=== PATIENT | female | born 1945 | race Caucasian/White ===

== ENCOUNTER 2022-09-18 07:55 | Outpatient (RCR) | payer MEDICARE, OTHER, SELFPAY | END 2022-10-07 16:00 | disposition home or self-care (01) | LOC: HO.WCC 07:55 | PROVIDERS: PCP Internal Medicine; Visit Provider Physician Assistant | DX: E11.621 Type 2 diabetes mellitus with foot ulcer (principal); L97.412 Non-pressure chronic ulcer of right heel and midfoot with fat layer exposed; E11.42 Type 2 diabetes mellitus with diabetic polyneuropathy; E11.51 Type 2 diabetes mellitus with diabetic peripheral angiopathy without gangrene; E11.610 Type 2 diabetes mellitus with diabetic neuropathic arthropathy; I10 Essential (primary) hypertension; I89.0 Lymphedema, not elsewhere classified; L84 Corns and callosities; Z79.84 Long term (current) use of oral hypoglycemic drugs; Z92.3 Personal history of irradiation | CPT/HCPCS: 11042; 99212 ==

== ENCOUNTER 2023-01-09 12:35 | Outpatient (RCR) | payer MEDICARE, OTHER, SELFPAY ==
--- NOTE | ~2023-01-09 | XR_ITS ---
EXAMINATION: XR FOOT, RIGHT CLINICAL INFORMATION: Nonhealing wound of midfoot; question osteomyelitis. COMPARISON: None available. TECHNIQUE: AP, lateral, and oblique views of the right foot. FINDINGS: Bony mineralization is normal. There is a pes planus configuration. There are second through fourth hammertoe configurations. No fracture, dislocation or right ankle joint effusion is seen. Boehler's angle is normal. There are small posterior and plantar calcaneal spurs. There are degenerative changes of the dorsal midfoot. No acute fracture or dislocation is seen. There are chronic periosteal calcifications noted of the second through fourth metatarsal bones, suggesting old, healed injuries. No focal bone erosion. There are diffuse atherosclerotic calcifications. XR/XR foot RT min 3V IMPRESSION: 1. No fracture, dislocation or right ankle joint effusion is seen. 2. There are small calcaneal spurs. 3. Chronic periosteal thickening of the second through fourth metatarsal bones suggests old, healed metatarsal stress fractures. 4. There are second through fourth hammertoe configurations. 5. There is a pes planus configuration. 6. No abnormal bone erosion or soft tissue gas is seen suggest acute osteomyelitis.
[2023-02-12 10:11] LABS: MANUAL DIFF FLAG NO
[2023-02-12 10:29] LABS: Estimated Average Glucose 117 mg/dL; Hemoglobin A1c % 5.7 % (<6.0)
[2023-02-12 10:33] LABS: Basophils Percent Auto 0.5 % (0-2); Eosinophils Absolute Auto 0.1 X10*3/uL (0.0-0.4); Eosinophils Percent Auto 1.1 % (0-4); Hematocrit 37.7 % (37.0-47.0); Hemoglobin 12.3 g/dl (12.0-16.0); Imm Gran Abs Auto 0.01 X10*3/uL (0.00-0.03); Imm Gran Pct Auto 0.2 % (0.0-0.4); Lymphocytes Absolute Auto 1.2 X10*3/uL (1.2-4.9); Lymphocytes Percent Auto 18.6 % (20-40); Mean Corpuscular HGB Conc 32.6 g/dl (31.0-35.0); Mean Corpuscular Hemoglobin 31.9 pg (27.0-33.0); Mean Corpuscular Volume 97.7 fL (80.0-98.0); Mean Platelet Volume 12.6 fL (9.4-12.3); Monocytes Absolute Auto 0.4 X10*3/uL (0.1-1.2); Monocytes Percent Auto 6.3 % (2-11); Neutrophils Absolute Auto 4.5 x10*3/uL (2.0-8.3); Neutrophils Percent Auto 73.3 % (45-73); Platelet Count 202 X10*3/uL (160-400); Red Blood Count 3.86 X10*6/uL (4.20-5.50); Red Cell Distribution Width 14.4 % (11.0-16.0); White Blood Count 6.2 X10*3/uL (4.8-10.8)
[2023-02-12 10:55] LABS: Anion Gap 12 (12-20); Blood Urea Nitrogen 22 mg/dL (9-16); C Reactive Protein 0.14 mg/dL (< or = 0.50); Calcium 9.6 mg/dL (8.4-10.2); Carbon Dioxide 27 mmol/L (22-29); Chloride 105 mmol/L (96-108); Estimated Glomerular Filt Rate 53; Glucose Random 96 mg/dL (60-115); Potassium 4.2 mmol/L (3.3-5.1); Sodium 140 mmol/L (135-145)
[2023-02-12 11:17] LABS: Erythrocyte Sedimentation Rate 31 MM/HR (0-20)
== END 2023-03-06 17:00 | disposition home or self-care (01) ==
LOC: HO.WCC 12:35
PROVIDERS: PCP Internal Medicine; Visit Provider Physician Assistant
DX: E11.621 Type 2 diabetes mellitus with foot ulcer (principal); E11.51 Type 2 diabetes mellitus with diabetic peripheral angiopathy without gangrene; L97.412 Non-pressure chronic ulcer of right heel and midfoot with fat layer exposed; E11.610 Type 2 diabetes mellitus with diabetic neuropathic arthropathy; E11.40 Type 2 diabetes mellitus with diabetic neuropathy, unspecified; I10 Essential (primary) hypertension; Z92.3 Personal history of irradiation
CPT/HCPCS: 11042; 36415; 73630; 80048; 83036; 84134; 85025; 85652; 86140; 99212

== ENCOUNTER 2024-11-17 10:03 | Outpatient (AMB) | payer MEDICARE, OTHER, SELFPAY ==
--- OUTSIDE RECORDS SUMMARY | 2024-11-17 11:49 | XMS_ITS | Clinical Summary ---
Author Organization [facility] Address [address] [place] [address] Care Team Providers Care Door Frame Builder Name Role Phone Nicolás Ramirez MD Primary Care Provider [phone] Allergies Active Allergy Reactions Criticality Noted Date Comments Amlodipine 05/15/2017 Penicillins 05/15/2017 Enalapril 05/15/2017 Medications Medication Sig Dispensed Refills Start Date End Date Status metFORMIN (GLUCOPHAGE) tablet 500 mg Take 500 mg by mouth 2 (two) times a day with meals. 0 Active metoprolol succinate (TOPROL-XL) 24 hr tablet 25 mg Take by mouth daily. 0 Active spironolactone (ALDACTONE) 100 MG tablet Take 100 mg by mouth daily. 0 Active hydrochlorothiazid e (HYDRODIURIL) tablet 25 mg Take 25 mg by mouth daily. 0 Active pravastatin (PRAVACHOL) tablet 40 mg Take 40 mg by mouth daily. 0 Active clindamycin (CLEOCIN) 300 MG capsule Take 2 capsules 1 hour prior to dental appointment 10 capsule 3 08/02/2017 Active Family History Medical History Relation Name Comments Diabetes Mother Hypertension Mother Relation Name Status Comments Mother Social History Tobacco Use Types Packs/Day Years Used Date Smoking Tobacco: Never Assessed Sex and Gender Information Value Date Recorded Sex Assigned at Not on file Gender Identity Not on file Sexual Orientation Not on file Plan of Treatment Health Maintenance Due Date Last Done Comments COVID-19 Vaccine (#1) 1945 Depression Screening 1956 Preventative Health Evaluation 01/11/1962 DTap / Tdap / Td (1 - Tdap) 01/11/1963 Shingrix-Zoster Vaccine (1 of 2) 01/11/1994 Fall Risk Assessment 01/11/2009 Osteoporosis Screening (DEXA Scan) 01/11/2009 Pneumococcal Vaccine (1 of 1 - PCV) 01/11/2009 RSV Adult > 60+ Yrs or Pregn ant (1 - 1-dose 75+ series) 01/11/2019 Influenza Vaccine (#1) 2024 Hepatitis B Vaccines Aged Out No long er eligible based on patient's age to complete this topic RSV Ped < 20 months Aged Out No longe r eligible based on patient's age to complete this topic Care Teams Door Frame Builder Relationship Specialty Start Date End Date Nicolás Ramirez MD [address] [place] [id number] PCP - General Internal Medicine 01/01/17
--- OUTSIDE RECORDS SUMMARY | 2024-11-17 11:49 | XMS_ITS | Patient Health Record ---
Author Organization [facility] Address [address] [place] [address] Care Team Providers Care Graphotype Operator Name Role Phone Nicolás Ramirez MD Primary Care Provider Argenis Fernandez Unavailable [phone] Arnaud Mace Unavailable [phone] Allergies Allergen (clinical drug ingredient) Drug/Non Drug Allergy documented on EMR Reaction Allergy Type Onset Date Status ibuprofen Advil told to avoid after surgery Drug Allergy Active Aleve told to avoid after surgery Drug Allergy Active sulfamethoxazole / trimethoprim Bactrim rash Drug Allergy Active Motrin told to avoid after surgery Drug Allergy Active amlodipine Norvasc right leg swelling Drug Allergy Active enalapril Vasotec angioedema Drug Allergy Active doxycycline Doxycycline Unknown Drug Allergy Act zaynab Penicillin rash Drug Allergy Active Results Component Value Reference Range Notes HEMOGLOBIN A1C (GLYCOHEMOGLO BIN) Reviewed date:07/30/2024 10:07:37 AM Interpretation: Performing Lab: Notes/Report: HEMOGLOBIN A1C % (HH) 6.3 Reason For Referral No Information Medications Medication SIG (Take, Route, Frequency, Duration) Notes Start Date End Date Status Metoprolol Succinate ER 25 MG 1 tablet Orally Once a day Active Pravastatin Sodium 40 MG 1 tablet Orally Once a day Active hydroCHLOROthiazide 25 MG as directed Orally Active Extra Depth Diabetic Shoes with 3 Pair Custom heat-molded multi-density innersoles for 1 year Dx: Not-Taking metFORMIN HCl ER 500 MG 1 tablet with ev ening meal Orally Once a day Not-Taking Doxycycline Monohydrate 100 MG 1 capsule Orally Once a day; Duration: 10 days 12/28/2022 Not-Taking Allopurinol 300 MG as directed Orally Active Compression Stockings 20-30mm Hg as directed Not-Taking Extra Depth Orthopedic Shoes (1 Pair) with Customized Heat Molded Multidensity Innersoles (3 Pair) as directed Dx: NIDDM/Polyneuropathy (E11.42), Hammertoe Foot Deformity (M20.41,M20.42), Preulcerative Skin Lesion(s) (L85.1 03/26/2024 Active Levaquin 500 MG 1 tablet Orally Once a day; Duration: 10 day(s) Not-Taking Spironolactone 100 MG 1 tablet with food Orally Once a day Active Night Splint AFO - L1930 as directed Not-Taking Custom Molded Shoes as directed Dx: Active Immunizations Vaccine Route Administration Date Status Comme nts Influenza Unknown 04/10/2017 Administered Influenza Unknown 12/13/2017 Administered Influenza Unknown 11/25/2018 Administered Influenza Unknown 07/10/2022 Administered Influenza Unknown 01/10/2023 Administered Influenza Unknown 12/13/2023 Administered Social History Tobacco Use: Social History Observation Description Date Details (start date - stop date) Never Smoker NA - NA Tobacco use other than smoking: Question Answer Notes Are you an other tobacco user? No Tobacco Control (Standard) Question Answer Notes Tobacco use: Nonsmoker Additional Findings: Tobacco non-user Current no nsmoker AUDIT-C (Standard) Question Answer Notes Did you have a drink containing alcohol in the p ast year? No Points 0 Interpretation Negative Problems Problem Type SNOMED Code ICD Code Onset Dates Problem Status W/U Status Risk Notes Problem Peripheral venous insufficiency (81755922) Venous insufficiency (chronic) (peripheral) (I87.2) Active confirmed Problem Polyneuropathy due to type 2 diabetes mellitus (716163329) Type 2 diabetes mellitus with diabetic polyneuropathy (E11.42) Active confirmed Vital Signs Blood pressure diastolic 80 mm Hg 11/06/2024 Height 5 ft 2 in in 11/06/2024 Blood pressure systolic 126 mm Hg 11/06/2024 Weight 200 lbs 11/06/2024 BMI 36.58 kg/m2 11/06/2024 Procedures Procedure Date Ordered Date Performed Result Body Sit e 06116-SVGJHZQ NAIL, 6 OR MORE 03/26/2024 N/A 20868-LAZC SKIN LESIONS, OVER 4 03/26/2024 N/A 98127-QUQHDKL NAIL, 6 OR MORE 07/30/2024 N/A 56082-ARGR SKIN LESIONS, OVER 4 07/30/2024 N/A 79952-UCNRUVC NAIL, 6 OR MORE 11/06/2024 N/A 18065-NQJT SKIN LESIONS, OVER 4 11/06/2024 N/A Encounters Encounter Location Date Provider Diagnosis [address] [address] 01/10/2024 Arnaud Mace Type 2 diabetes mellitus with diabetic polyneuropathy E11.42 ; Other hammer toe(s) (acquired), left foot M20.42 ; Other hammer toe(s) (acquired), right foot M20.41 ; Primary osteoarthritis, left ankle and foot M19.072 ; Primary osteoarthritis, right ankle and foot M19.071 ; Lymphedema I89.0 ; Venous insufficiency (chronic) (peripheral) I87.2 ; Charcot arthropathy of midfoot M14.679 ; Tinea unguium B35.1 ; Pain in right toe(s) M79.674 and Pain in left toe(s) M79.[address] [address] 03/26/2024 Argenis Salazar Type 2 diabetes mellitus with diabetic polyneuropathy E11.42 ; Tinea unguium B35.1 ; Other hammer toe(s) (acquired), right foot M20.41 and Other hammer toe(s) (acquired), left foot M20.[address] [address] 07/30/2024 Argenis Salazar Type 2 diabetes mellitus with diabetic polyneuropathy E11.42 and Tinea unguium B35.[address] [address] 11/06/2024 Argenis Salazar Type 2 diabetes mellitus with diabetic polyneuropathy E11.42 and Tinea unguium B35.1 Assessments Encounter Date Diagnosis (ICD Code) Assessment Notes Treatment Notes Treatment Clinical Notes Section Notes 01/10/2024 Type 2 diabetes mellitus with diabetic polyneuropathy (ICD-10 - E11.42) 03/26/2024 Type 2 diabetes mellitus with diabetic polyneuropathy (ICD-10 - E11.42) 03/26/2024 Tinea unguium (ICD-10 - B35.1) 07/30/2024 Type 2 diabetes mellitus with diabetic polyneuropathy (ICD-10 - E11.42) 07/30/2024 Tinea unguium (ICD-10 - B35.1) 11/06/2024 Type 2 diabetes mellitus with diabetic polyneuropathy (ICD-10 - E11.42) 11/06/2024 Tinea unguium (ICD-10 - B35.1) 01/10/2024 Other hammer toe(s) (acquired), left foot (ICD-10 - M20.42) 03/26/2024 Other hammer toe(s) (acquired), right foot (ICD-10 - M20.41) Patient Educated with: DIABETIC FOOT CARE INSTRUCTIONS. pdf (DIABETIC FOOT CARE INSTRUCTIONS. pdf) 03/26/2024 Other hammer toe(s) (acquired), left foot (ICD-10 - M20.42) 01/10/2024 Other hammer toe(s) (acquired), right foot (ICD-10 - M20.41) 01/10/2024 Primary osteoarthritis, left ankle and foot (ICD-10 - M19.072) 01/10/2024 Primary osteoarthritis, right ankle and foot (ICD-10 - M19.071) 01/10/2024 Lymphedema (ICD-10 - I89.0) 01/10/2024 Venous insufficiency (chronic) (peripheral) (ICD-10 - I87.2) 01/10/2024 Charcot arthropathy of midfoot (ICD-10 - M14.679) 01/10/2024 Tinea unguium (ICD-10 - B35.1) 01/10/2024 Pain in right toe(s) (ICD-10 - M79.674) 01/10/2024 Pain in left toe(s) (ICD-10 - M79.675) Plan Of Treatment Pending Test Test Name Order Date X ray : Foot, left 3V 08/31/2022 X ray : Foot, right 3V 08/31/2022 43423-RNOIAPY NAIL, 6 OR MORE 03/26/2024 06212-OKUBBSN NAIL, 6 OR MORE 07/30/2024 27224-LUHREYM NAIL, 6 OR MORE 11/06/2024 59395-QGOOZBZ SKIN/TISSUE 12/28/2022 95335-OPVICBD SKIN/TISSUE 01/02/2023 85033-HZHYTMD SKIN/TISSUE 08/31/2022 79596-VFRH SKIN LESIONS, OVER 4 03/18/19 58844-MIUV SKIN LESIONS, OVER 4 03/26/19 96354-MAXJ SKIN LESIONS, OVER 4 11/07/19 25 50548-FXWM SKIN LESIONS, OVER 4 07/31/19 19515-VRFQ SKIN LESIONS, 2 TO 4 03/14/19 17681-FWTO SKIN LESIONS, 2 TO 4 09/01/19 23 40082-HLRC SKIN LESIONS, 2 TO 4 04/17/19 18 08777-QUMV SKIN LESIONS, 2 TO 4 07/18/19 18 36073-TPYB SKIN LESIONS, 2 TO 4 10/10/19 18 30381-ZWNX SKIN LESIONS, 2 TO 4 01/09/20 18 K4013-ICSIWINX DYSTROPHIC NAILS ANY # Next Appt Details Provider Name:Argenis Francisco renetta, 01/27/2025 08:30:00 AM, [address] [facility] [address], [place], [address], Provider Name:Argenis Francisco renetta, 04/01/2025 09:15:00 AM, [address] [place], [address], Insurance Providers Payer Name Payer Address Payer Phone Subscriber Number Group Number Insured Name Patient Relationship to Insured Coverage Start Date Coverage End Date Medicare [employer] [address] [place] [address] [id number] Valerie Johnson Self - patient is the insured [facility] [address] [place], [place] [address] [phone] [id number] Valerie Johnson Self - patient is the insured Medical (General) History Medical History History ICD Code Arthritis Chicken pox Diabetes mellitus Type 2 High blood pressure Measles Numbness Osteoporosis Poor circulation Broken bones Cancer Cataracts Gout Joint implants/screws lymphodema/cellulitis Surgical History Surgery Date(Month/Year) spinal fusion 2014 left knee replacement 2016
== END 2024-11-17 10:08 | disposition home or self-care (01) ==
LOC: HO.HMGAL 10:03
PROVIDERS: PCP Internal Medicine; Visit Provider Registered Nurse Emergency
DX: J30.89 Other allergic rhinitis (principal)
CPT/HCPCS: 95117; 95165

== ENCOUNTER 2024-12-31 12:54 | Outpatient (AMB) | payer MEDICARE, OTHER, SELFPAY ==
--- OUTSIDE RECORDS SUMMARY | 2024-12-31 17:54 | XMS_ITS | Data Portability ---
Author Organization [place] [facility], Allergy Address [address] [address] Care Team Providers Care Vocal Music Instructor Name Role Phone GISELLA BELLAMY Primary Care Provider Assessment Encounter Date Assessment Date Assessment LastModified by Organization Details LastModified Time 12/01/2024 12/01/2024 Valerie Johnson is an 79-year-old female with a history of prolonged allergy symptoms and extended use of allergy shots for approximately 15 to 20 years. Her allergies include mold, ragweed, trees, grass, and cats. She is currently taking metoprolol daily, which contraindicates the use of allergy shots due to potential ineffectiveness of epinephrine in case of an allergic reaction. The patient was advised that continuing allergy shots beyond five years is uncommon and may not provide significant benefit. It was explained that allergy shots typically work by creating blocking antibodies within five years, and prolonged use may not yield additional improvement. Restarting allergy shots would require retesting for allergens and re-evaluating the antigens used, which may not be practical or beneficial at her age. The patient was recommended to manage her allergy symptoms with flmn-zed-dinhokx medications such as Claritin or Zyrtec as needed. She was also advised to take a dose of Claritin prior to visiting her daughter's house to mitigate reactions to cat allergens. FOLLOW-UP: The patient was encouraged to return if her symptoms persist or worsen, or if she wishes to discuss alternative management options. She can return to [facility] where they would continue her monthly injections per her prior ENT doctor erica Not available 12/01/2024 11:58:50 Plan of Treatment Reminders Order Date Submit Date Provider Last Modified By Organization Details Last Modified Time Details Appointments None record ed. Lab None record ed. Referral None record ed. Procedures None record ed. Surgeries None record ed. Imaging None record ed. Medication Orders None record ed. Patient TargetsNo targets recorded. Patient Instructions Encounter Date Encounter Id Patient Instructions Last Modified By Organization Details Last Modified Time 12/01/2024 [id number] - Manage allergy symptoms with eyte-uei-byijmmc medications such as Claritin or Zyrtec as needed. - Take Claritin prior to visiting daughter's house to mitigate reactions to cat allergens. - Return if symptoms persist or worsen, or to discuss alternative management options. erica Not available 12/01/2024 09:57:08 Please note: Parts of this encounter note have been generated by AI based on audio conversation. Patient consent was required prior to utilizing this technology. Content review was required prior to finalizing the note. erica Not available 12/01/2024 09:57:08 Reason for Referral None Reported. Results Created Date Observation Date Name Description Value Unit Range Abnormal Flag Note LastModifiedBy Organization Detail LastModifiedTime 12/02/1912/27/2005 audio gram No observ ation record ed. [email or web address] Not Available 11/11 10:09:21 12/02/19 25 03/03/2013 audio gram No observ ation record ed. Not Available 11/11 10:10:48 12/02/19 25 12/21/2016 audio gram No observ ation record ed. [email or web address] Not Available 11/11 10:11:32 Result Notes None recorded. Problems Name Problem SNOMED Code Status Onset Date Resolution Date Notes Provider Name and Address Organization Details Recorded Time Allergic rhinitis 39411238 Active 2024 LINDA BILLS MD [address] [place] [address], [place], [phone], [facility] - [facility] 09:47:23 Deviated nasal septum 817345117 Active 2024 LINDA BILLS MD [address] [place] [address], [place], [address], [facility] - [facility] 09:47:27 Essential hypertension 66862592 Active 2024 LINDA BILLS MD [address] [place] [address], [phone], [facility] - [facility] 5 09:47:33 Problem Notes None recorded. Procedures Surgical History Date Name Laterality Status Provider Name and Address Organization Details Recorded Time total knee replacement completed Neelam Campbell [place] - [facility] 12/01/2024 09:50:24 Imaging Results None recorded. Procedure Notes None recorded. Medical Equipment None Reported. Allergies Allergen ID Allergen Name Allergen Category Reaction Reaction Severity Criticality Documentation Date Start Date Code Code System Note Provider Name and Address Organization Details Recorded Time 262333 Norvasc medicatio n Not available Not available Not available 12/01/2024 11889 RxNorm Neelam leiva [facility] 5 09:49:38 618247 Vasotec medicatio n Not available Not available Not available 12/01/2024 38890 1 RxNorm Neelam leiva [facility] 5 09:49:52 471850 Product containin g penicilli n (product) medicatio n Not available Not available Not available 12/01/2024 56087 8001 SNOMED Neelam leiva [facility] 5 09:50:00 Medications Name Sig Start Date Stop Date Status Note LastModified by Organization Details LastModified Time clindamycin HCl 300 mg capsule TAKE 2 CAPSULES BY MOUTH 1 HOUR PRIOR TO DENTAL APPOINTME NT active Not Available Not Available No t Available pravastatin 40 mg tablet TAKE 1 TABLET BY MOUTH ONCE DAILY active Not Available Not Available No t Available spironolact one 100 mg tablet TAKE 1 TABLET BY MOUTH ONCE DAILY active Not Available Not Available No t Available allopurinol 300 mg tablet TAKE 1 TABLET BY MOUTH ONCE DAILY active Not Available Not Available No t Available metoprolol succinate ER 25 mg tablet,exte nded release 24 hr TAKE 1 TABLET BY MOUTH ONCE DAILY active Not Available Not Available No t Available nystatin 100,000 unit/gram topical powder APPLY 1 APPLICATI ON OF POWDER TOPICALLY 3 TIMES A DAY TO THE AFFECTED AREA. active Not Available Not Available No t Available metformin ER 500 mg tablet,exte nded release 24 hr TAKE 1 TABLET BY MOUTH TWICE DAILY 12/01 completed Not Available Not Available Not Available Vitals Date Recorded Body height Body mass index (BMI) Body weight Systolic And Diastolic Provider Name and Address Organization Details Last Updated DateTime 12/01/2024 152.4 cm 39.1 kg/m2 01386.47 g 142/92 mm[Hg] Neelam Campbell [place] - [facility] 12/01/2024 09:24:59 Social History None recorded. Functional Status None recorded. Mental Status None recorded. Family History Nothing Reported. Medical History Condition Response Cancer Y Arthritis Y Hypertension Y Gynecological HistoryNo gynecological history recorded. Obstetrics History GPAL:G 0 P 0 0 0 0 Past Encounters Encounter ID Performer Location Encounter Start Date Encounter Closed Date Diagnosis/Indication Diagnosis SNOMED-CT Code Diagnosis ICD10 Code Diagnosis IMO Codes Diagnosis Note [id number] LINDA ERIC MD [facility] [address] [address] 12/01/2024 09:10:27 12/01/2024 10:04:30 Allergic rhinitis 64325705 J30.9 8501878 Deviated nasal septum 12 1167174 J34.2 044742 Essential hypertension 86083865 I10 20437 Health Concerns Section Related Observation LastModified by Organization Detai ls LastModified Time None Recorded Concern Status LastModified by Organization Details LastModified Time None Recorded Advance Directives Directive None Recorded Payers Insurance Date Sequence Insurance Name Policy Number Policy Schmidt Covered Member ID Schmidt Member ID Guarantor Name 12/01/2024 1 [place] [employer] Valerie Johnson [id number] Valerie Johnson 12/01/2024 2 [employer] - PLAN 1 (MEDICARE SUPPLEMENT) [id number] Valerie Johnson [id number] Valerie Johnson Notes Date Note Type Note Provider Name and Address Organization Details Recorded Time 12/01/2024 text/html Valerie Johnson is an 79-year-old female who presents for evaluation of allergy symptoms. She reports a history of receiving allergy shots for approximately 15 to 20 years, primarily for symptoms such as nasal congestion and a stuffy nose. Her allergies include mold, ragweed, trees, grass, and cats. She has been taking metoprolol daily and does not use any allergy medications such as Claritin, Susan, Zyrtec, or nasal sprays like Flonase. She has previously undergone hearing tests but does not use hearing aids for daily life, only for television. The patient mentions that she experiences allergic reactions when exposed to cats, particularly during visits to her daughter's house. She has been informed by her previous provider that continuing allergy shots may help manage her symptoms. LINDA ALVAREZ MD [address] [place] [address], [place], [address], [facility] - [facility] 12/01/2024 11:59:00 OBGyn Episode No OBEpisode recorded.
== END 2024-12-31 13:23 | disposition home or self-care (01) ==
LOC: HO.HMGAL 12:54
PROVIDERS: PCP Internal Medicine; Visit Provider Registered Nurse Emergency
DX: J30.89 Other allergic rhinitis (principal)
CPT/HCPCS: 95117; 95165

== ENCOUNTER 2025-02-09 12:47 | Outpatient (AMB) | payer MEDICARE, OTHER, SELFPAY ==
--- OUTSIDE RECORDS SUMMARY | 2025-02-09 16:23 | XMS_ITS | Clinical Summary ---
Author Organization [facility] Address [address] [place] [address] Care Team Providers Care Night Baker Name Role Phone Nicolás Ramirez MD Primary Care Provider [phone] Allergies Active Allergy Reactions Criticality Noted Date [...] age to complete this topic Care Teams Night Baker Relationship Specialty Start Date End Date Nicolás Ramirez MD [address] [place] [id number] PCP - General Internal Medicine 01/01/17
--- OUTSIDE RECORDS SUMMARY | 2025-02-09 16:23 | XMS_ITS | Data Portability ---
Author Organization [place] - [facility], Allergy Address [address] [address] Care Team Providers Care Mail Truck Driver Name Role Phone GISELLA BELLAMY Primary Care Provider [phone] Assessment Encounter Date Assessment Date Assessment LastModified [...] recommended to manage her allergy symptoms with zzbx-wfg-wiogbdt medications such as Claritin or Zyrtec as needed. She was also advised to take a dose of Claritin prior to visiting her daughter's house to mitigate reactions to cat allergens. FOLLOW-UP: The patient was encouraged to return if her symptoms persist or worsen, or if she wishes to discuss alternative management options. She can return to [facility] where they would continue her monthly injections [...] By Organization Details Last Modified Time 12/01/2024 78097 - Manage allergy symptoms with llqm-gyv-xzsatku medications such as Claritin or Zyrtec as [...] audio gram No observ ation record ed. [email or web address] Not Available 11/11 10:09:21 12/02/19 25 03/03/2013 audio gram No observ ation record ed. Not Available 11/11 10:10:48 12/02/19 25 12/21/2016 audio gram No observ ation record ed. [email or web address] Not Available 11/11 10:11:32 Result Notes None recorded. Problems Name Problem SNOMED Code Status Onset Date Resolution Date Notes Provider Name and Address Organization Details Recorded Time Allergic rhinitis 77501418 Active 2024 LINDA BILLS MD [address] [place] [address], [place] [address], [facility] - [facility] 09:47:23 Deviated nasal septum 696778473 Active 2024 LINDA BILLS MD [address] [place] [address], [place], [address], [facility] - [facility] 09:47:27 Essential hypertension 84289520 Active 2024 LINDA BILLS MD [address] [place] [address], [address], [facility] - [facility] 5 09:47:33 Problem Notes None recorded. Procedures Surgical History Date Name Laterality Status Provider Name and Address Organization Details Recorded Time total knee replacement completed Neelam Campbell [place] - [facility] 12/01/2024 09:50:24 Imaging Results None recorded. Procedure Notes None recorded. Medical Equipment None Reported. Allergies Allergen ID Allergen Name Allergen Category Reaction Reaction Severity Criticality Documentation Date Start Date Code Code System Note Provider Name and Address Organization Details Recorded Time 749994 Norvasc medicatio n Not available Not available Not available 12/01/2024 88737 RxNorm Neelam leiva [facility] 5 09:49:38 739144 Vasotec medicatio n Not available Not available Not available 12/01/2024 78414 1 RxNorm Neelam leiva [facility] 5 09:49:52 800046 Product containin g penicilli n (product) medicatio n Not available Not available Not available 12/01/2024 57437 8001 SNOMED Neelam leiva [facility] 5 09:50:00 Medications Name Sig Start [...] Updated DateTime 12/01/2024 152.4 cm 39.1 kg/m2 14095.47 g 142/92 mm[Hg] Neelam Campbell [place] - [facility] 12/01/2024 09:24:59 Social History None recorded. [...] ICD10 Code Diagnosis IMO Codes Diagnosis Note [id number] LINDA ERIC MD [facility] [address] [address] 12/01/2024 09:10:27 12/01/2024 10:04:30 Allergic rhinitis 81833876 J30.9 1728293 Deviated nasal septum 12 0005728 J34.2 103164 Essential hypertension 75445770 I10 11382 Health Concerns Section Related Observation LastModified by Organization Detai ls LastModified Time None Recorded Concern Status LastModified by Organization Details LastModified Time None Recorded Advance Directives Directive None Recorded Payers Insurance Date Sequence Insurance Name Policy Number Policy Schmidt Covered Member ID Schmidt Member ID Guarantor Name 12/01/2024 1 [place] [employer] [employer] Valerie Johnson [id number] Valerie Johnson 12/01/2024 2 [facility] - PLAN 1 (MEDICARE SUPPLEMENT) [id number] Valerie Johnson [id number] Valerie Johnson Notes Date Note Type Note [...] help manage her symptoms. LINDA ALVAREZ MD [address] [place] [address], [place], [address], [facility] - [facility] 12/01/2024 11:59:00 OBGyn Episode No OBEpisode recorded.
--- OUTSIDE RECORDS SUMMARY | 2025-02-09 16:23 | XMS_ITS | Continuity of Care Document ---
Author Organization [place] - [facility], [facility] Address [address] [place] [address] Care Team Providers Care Quality Control Checker Name Role Phone GISELLA BELLAMY Primary Care [...] recommended to manage her allergy symptoms with epqo-ris-htedncc medications such as Claritin or Zyrtec as needed. She was also advised to take a dose of Claritin prior to visiting her daughter's house to mitigate reactions to cat allergens. FOLLOW-UP: The patient was encouraged to return if her symptoms persist or worsen, or if she wishes to discuss alternative management options. She can return to [facility] where they would continue her monthly [...] By Organization Details Last Modified Time 12/01/2024 78596 - Manage allergy symptoms with nvlr-shp-ttjtsgx medications such as Claritin or Zyrtec as [...] audio gram No observ ation record ed. [email or web address] Not Available 11/11 10:09:21 12/02/19 25 03/03/2013 audio gram No observ ation record ed. [email or web address] Not Available 11/11 10:10:48 12/02/19 25 12/21/2016 audio gram No observ ation record ed. [email or web address] Not Available 11/11 10:11:32 Result Notes None recorded. Problems Name Problem SNOMED Code Status Onset Date Resolution Date Notes Provider Name and Address Organization Details Recorded Time Allergic rhinitis 14893980 Active 2024 LINDA BILLS MD [address] [place] [address], [place], [address], [facility] - [facility] 09:47:23 Deviated nasal septum 304761528 Active 2024 LINDA BILLS MD [address] [address], [place], [address], [facility] - [facility] 09:47:27 Essential hypertension 40682070 Active 2024 LINDA BILLS MD [address] [place] [address], [phone], [facility] 5 09:47:33 Problem Notes None recorded. Procedures Surgical History Date Name Laterality Status Provider Name and Address Organization Details Recorded Time total knee replacement completed Neelam Campbell [facility] 12/01/2024 09:50:24 Imaging Results None recorded. Procedure Notes None recorded. Medical Equipment None Reported. Allergies Allergen ID Allergen Name Allergen Category Reaction Reaction Severity Criticality Documentation Date Start Date Code Code System Note Provider Name and Address Organization Details Recorded Time 944568 Norvasc medicatio n Not available Not available Not available 12/01/2024 58793 RxNorm Neelam leiva [facility] 5 09:49:38 465931 Vasotec medicatio n Not available Not available Not available 12/01/2024 95392 1 RxNorm Neelam leiva [facility] 5 09:49:52 432095 Product containin g penicilli n (product) medicatio n Not available Not available Not available 12/01/2024 61383 8001 SNOMED Neelam leiva [facility] 5 09:50:00 Medications Name Sig Start Date [...] Updated DateTime 12/01/2024 152.4 cm 39.1 kg/m2 71234.47 g 142/92 mm[Hg] Neelam Campbell [place] - [facility] 12/01/2024 09:24:59 Social History None recorded. Functional Status None recorded. Mental Status None recorded. Family History Nothing Reported. Medical History Condition Response Arthritis Y Cancer Y Hypertension Y Gynecological HistoryNo gynecological history recorded. Obstetrics History GPAL:G 0 P 0 0 0 0 Past Encounters Encounter ID Performer Location Encounter Start Date Encounter Closed Date Diagnosis/Indication Diagnosis SNOMED-CT Code Diagnosis ICD10 Code Diagnosis IMO Codes Diagnosis Note [id number] LINDA ERIC MD [facility] [address] [address] 12/01/2024 09:10:27 12/01/2024 10:04:30 Allergic rhinitis 91463652 J30.9 8402995 Deviated nasal septum 12 1137145 J34.2 443366 Essential hypertension 78626011 I10 66204 Health Concerns Section Related Observation LastModified by Organization Detai ls LastModified Time None Recorded Concern Status LastModified by Organization Details LastModified Time None Recorded Payers Encounter Date Sequence Insurance Name Policy Number Policy Schmidt Covered Member ID Schmidt Member ID Guarantor Name 12/01/2024 1 [place] [employer] Valerie Johnson [id number] Valerie Johnson 12/01/2024 2 [facility] - PLAN 1 (MEDICARE SUPPLEMENT) [id number] 1 Valerie Koenigo [id number] Valerie Johnson Notes Date Note Type Note [...] help manage her symptoms. LINDA ALVAREZ MD [address] [place] [address], [place], [address], [facility] - [facility] 12/01/2024 11:59:00 OBGyn Episode No OBEpisode recorded.
== END 2025-02-09 12:48 | disposition home or self-care (01) ==
LOC: HO.HMGAL 12:47
PROVIDERS: PCP Internal Medicine; Visit Provider Registered Nurse Emergency
DX: J30.89 Other allergic rhinitis (principal)
CPT/HCPCS: 95117; 95165